=== PATIENT | male | born 1950 | race Caucasian/White ===

== ENCOUNTER 2025-05-19 12:46 | Outpatient (CLI) | payer MEDICARE, BC, SELFPAY ==
--- NOTE | 2025-05-19 13:00 | CRLHL7_ITS ---
For Patients: As a result of the Century Cures Act, medical imaging exams and procedure reports are released immediately into your electronic medical record. You may view this report before your referring provider. If you have questions, please contact your health care provider. Indication: HEMATURIA Technique: Routine noncontrast CT abdomen and pelvis Please note that all CT scans at this facility use dose modulation, iterative reconstruction, and/or weight-based dosing when appropriate to reduce radiation dose to as low as reasonably achievable. Comparison: None Findings: Mild linear subsegmental scarring in both lung bases. Small cysts are present within the liver measuring up to 1.4 cm. Spleen is normal in size. Normal adrenal glands. Pancreas normal. Gallbladder is partially distended. No gallstones. Small left renal stones in the inferior pole measure up to 3 millimeters. No ureteral stone. No hydronephrosis or hydroureter. Stone material layering dependently within the bladder measuring up to 2.3 cm. Mild prostate calcifications. No bowel obstruction or free air. No free fluid. Normal appendix. Facet degeneration lower lumbar spine. Multilevel discogenic spurring. No vertebral body compression fracture. Impression: Multiple bladder stones. No bladder wall thickening. No hydronephrosis. Nonobstructing left renal stones. Please note that all CT scans at this facility use dose modulation, iterative reconstruction, and/or weight-based dosing when appropriate to reduce radiation dose to as low as reasonably achievable. Dictated by Justice Padilla MD @ 05/20/2025 8:39:45 AM (Electronically Signed)
== END 2025-05-19 12:47 | disposition home or self-care (01) ==
LOC: CT 12:54
PROVIDERS: PCP Family Medicine; Visit Provider Family Medicine
DX: R31.9 Hematuria, unspecified (principal); N21.0 Calculus in bladder; N20.0 Calculus of kidney
CPT/HCPCS: 74176